=== PATIENT | female | born 1955 ===

== ENCOUNTER 2022-07-13 06:02 | Emergency (ER) | payer BC ==
[2022-07-13] MEDS ORDERED: LORazepam 0.5 MG Tab PO ONE (06:22)
[2022-07-13] MEDS ORDERED: Ondansetron 4 MG Tab.DIS PO ONE (06:22)
[2022-07-13] MEDS ORDERED: Meclizine 12.5 MG Tab PO ONE (06:22)
== END 2022-07-13 07:57 | disposition home or self-care (01) ==
LOC: DL.ED 06:02
DX: R42 Dizziness and giddiness (principal)
CPT/HCPCS: 99284; A9270-GY